=== PATIENT | female | born 1945 | race Caucasian/White ===

== ENCOUNTER 2016-10-19 11:38 | Emergency (ER) | payer MEDICARE ==
[2016-10-19] MEDS ORDERED: Lorazepam 2 MG/ML VIAL ONE ×2 (13:23→19:11)
--- NOTE | 2016-10-19 22:49 | CT ---
CT BRAIN WITHOUT CONTRAST: HISTORY: Syncope. FINDINGS/IMPRESSION: Comparison is made with the exam of 07/05/15. No evidence of acute infarct, hemorrhage, midline shift, or abnormal extraaxial fluid collections se en. Ventricular size is appropriate and the basilar cisterns are patent. The bony calvarium is int act. The visualized paranasal sinuses and mastoid air cells are well aerated. IMPRESSION: No acute intracranial process. POS: [facility]
--- NOTE | 2016-10-19 22:50 | RAD ---
THREE VIEWS OF THE RIGHT SHOULDER: COMPARISON: None. HISTORY: Right shoulder pain. FINDINGS: Three views of the right shoulder show no evidence of acute fracture or dislocation. No degenerativ e changes are seen. No soft tissue swelling is present. IMPRESSION: No significant right shoulder abnormality. POS: [facility]
--- NOTE | 2016-10-19 22:51 | RAD ---
TWO VIEWS OF THE RIGHT ELBOW: Comparison: None. History: Trauma with right elbow pain. FINDINGS: Two views of the right elbow shows no evidence of acute fracture or dislocation. Elbow effusion is seen. No other degenerative changes are seen. IMPRESSION: No evidence of acute osseous abnormality. POS: [facility]
--- NOTE | 2016-10-19 22:51 | RAD ---
SINGLE VIEW OF THE CHEST: COMPARISON: 04/25/16. HISTORY: Trauma with chest pain. FINDINGS: A single view of the chest shows an enlarged cardiomediastinal silhouette with atherosclerotic calci fications in the aorta. There is no evidence of consolidation, mass, or pleural effusion. Degenera tive changes are seen in the spine. IMPRESSION: 1. Cardiomegaly. 2. Atherosclerotic disease. POS: [facility]
--- NOTE | 2016-10-19 22:51 | RAD ---
TWO VIEWS OF THE RIGHT HUMERUS: COMPARISON: None. HISTORY: Right humerus pain after a trauma. FINDINGS: Two views of the right humerus show no evidence of acute fracture or dislocation. No soft tissue sw elling is seen. No degenerative changes are seen in the shoulder or elbow. IMPRESSION: Unremarkable exam. POS: [facility]
[2016-10-20 00:59] LABS: #Basophils 0.1 thou/uL (0.0-0.2); #Eosinphils 0.1 thou/uL (0.0-0.7); #Lymphocytes 2.1 thou/uL (1.20-3.40); #Monocytes 0.5 thou/uL (0.11-0.59); %Basophils 1.1 % (0.0-1.0); %Eosinophils 0.9 % (0.0-10.0); %Lymphocytes 27.2 % (21.0-51.0); %Neutrophils 64.9 % (42.0-75.0); Mean Corpuscular HGB CONC 35.3 g/dL (32.0-36.0); Mean Corpuscular Hemoglobin 32.4 pg (27.0-31.0); Mean Corpuscular Volume 91.9 fl (81.0-99.0); Mean Platelet Volume 9.7 fL (7.4-10.4); Platelet Count 221 thou/uL (130-400); RBC Distribution Width 11.7 % (11.5-14.5); White Blood Cell (WBC) Count 7.7 thou/uL (4.8-10.8)
[2016-10-20 01:00] LABS: ALT (SGPT) 16 U/L (0-55); AST (SGOT) 22 U/L (5-34); Albumin 4.1 g/dL (3.4-4.8); Alkaline Phosphatase 106 U/L (40-150); Anion Gap 17 mmol/L (10-20); BUN (Urea Nitrogen) 16 mg/dL (9.8-20.1); Bilirubin, Total 0.3 mg/dL (0.2-1.2); Calc. Creatinine Clearance 0 mL/min (70-130); Calcium 9.4 mg/dL (7.8-10.44); Carbon Dioxide 25 mmol/L (23-31); Chloride 104 mmol/L (98-107); Estimated GFR-MDRD 68; Glucose 104 mg/dL (83-110); Magnesium 2.3 mg/dL (1.6-2.6); Potassium 4.4 mmol/L (3.5-5.1); Protein, Total 7.1 g/dL (5.8-8.1); Sodium 142 mmol/L (136-145)
[2016-10-20 01:02] LABS: CKMB 0.9 ng/mL (0-6.6); Troponin I Less than 0.010 ng/mL (< 0.028)
== END 2016-10-19 14:46 | disposition short-term general hospital (02) ==
LOC: MADERS 11:38
DX: R55 Syncope and collapse (principal); R56.9 Unspecified convulsions; I25.10 Atherosclerotic heart disease of native coronary artery without angina pectoris; I49.9 Cardiac arrhythmia, unspecified; I48.91 Unspecified atrial fibrillation; J44.9 Chronic obstructive pulmonary disease, unspecified; M19.90 Unspecified osteoarthritis, unspecified site; E79.0 Hyperuricemia without signs of inflammatory arthritis and tophaceous disease; F41.9 Anxiety disorder, unspecified; Z79.82 Long term (current) use of aspirin; Z79.899 Other long term (current) drug therapy; Z86.73 Personal history of transient ischemic attack (TIA), and cerebral infarction without residual deficits
CPT/HCPCS: 36415; 36416; 70450; 71010; 80053; 82553; 83735; 83880; 84484; 85025; 93005; 96374; J2060

== ENCOUNTER 2017-04-09 19:38 | Emergency (ER) | payer MEDICARE ==
[2017-04-09] MEDS ORDERED: Ondansetron ODT 4 MG TAB ONE (21:39)
[2017-04-09] MEDS ORDERED: Ketorolac Tromethamine 60 MG/2 ML VIAL ONE (21:39)
== END 2017-04-09 22:11 | disposition home or self-care (01) ==
LOC: MADERS 19:38
DX: G43.909 Migraine, unspecified, not intractable, without status migrainosus (principal); I25.10 Atherosclerotic heart disease of native coronary artery without angina pectoris; I25.2 Old myocardial infarction; I48.91 Unspecified atrial fibrillation; J44.9 Chronic obstructive pulmonary disease, unspecified; F41.9 Anxiety disorder, unspecified; Z86.73 Personal history of transient ischemic attack (TIA), and cerebral infarction without residual deficits; Z79.82 Long term (current) use of aspirin; Z79.899 Other long term (current) drug therapy
CPT/HCPCS: 96372; J1885; Q0162

== ENCOUNTER 2017-04-24 12:46 | Outpatient (CLI) | payer MEDICARE ==
[2017-04-24 13:56] LABS: Clarity Hazy (Clear); Glucose, Urine (Dipstick) Negative (Negative); Leukocyte Small (Negative); Nitrite Negative (Negative); Protein, Urine (Dipstick) Negative (Neg-Trace); Urobilinogen 0.2 mg/dL (0.2-1.0)
[2017-04-24 13:57] LABS: Bacteria/HPF Rare-Few HPF (None Seen); Bilirubin Negative (Negative); Blood, Urine Negative (Negative); RBC/HPF 0-3 HPF (0-3); Squamous Epithelial 0-3 HPF (0-3); WBC/HPF 0-3 HPF (0-3)
== END 2017-04-24 12:47 | disposition home or self-care (01) ==
LOC: MADLAB 12:46
PROVIDERS: ATTEND Urology
DX: N39.41 Urge incontinence (principal)
CPT/HCPCS: 36415; 81001; 87077; 87086; 87186

== ENCOUNTER 2017-05-08 13:32 | Outpatient (CLI) | payer MEDICARE ==
[2017-05-08 14:25] LABS: Bilirubin Negative (Negative); Blood, Urine Negative (Negative); Glucose, Urine (Dipstick) Negative (Negative); Leukocyte Negative (Negative); Nitrite Negative (Negative); Protein, Urine (Dipstick) Negative (Neg-Trace); Urobilinogen 0.2 mg/dL (0.2-1.0)
[2017-05-08 14:26] LABS: Bacteria/HPF Rare-Few HPF (None Seen); Clarity Hazy (Clear); RBC/HPF 0-3 HPF (0-3); Squamous Epithelial 0-3 HPF (0-3); WBC/HPF 0-3 HPF (0-3)
== END 2017-05-08 13:33 | disposition home or self-care (01) ==
LOC: MADLAB 13:32
PROVIDERS: ATTEND Urology
DX: N39.41 Urge incontinence (principal)
CPT/HCPCS: 36415; 81001; 87086

== ENCOUNTER 2023-07-15 17:11 | Emergency (ER) | payer MEDICARE ==
[2023-07-15 18:31] LABS: Bilirubin Negative (Negative); Blood, Urine Negative (Negative); Glucose, Urine (Dipstick) 250 mg/dL (Negative); Ketone, Urine Negative (Negative); Leukocyte Trace (Negative); Nitrite Negative (Negative); Protein, Urine (Dipstick) Trace mg/dL (Neg-Trace); Specific Gravity, Urine 1.015 (1.005-1.030); Urobilinogen 0.2 mg/dL (Less than 2); pH, Urine 5.5 (5.0-9.0)
[2023-07-15 18:32] LABS: Clarity Hazy (Clear)
[2023-07-15 18:37] LABS: Bacteria/HPF Rare-Few HPF (None Seen); CAUTI Indications for Culture Dysuria,urgency,freq; Mucous/LPF Few LPF (<2+); RBC/HPF None Seen HPF (0-3); Squamous Epithelial 0-3 HPF (0-3)
[2023-07-15 18:38] LABS: Urine Culture Reflex No No
[2023-07-15] MEDS ORDERED: Amoxicillin/Potassium Clav 875 MG TAB ONE (18:57)
[2023-07-15] MEDS ORDERED: Acetaminophen 500 MG TAB ONE (18:57)
== END 2023-07-15 19:20 | disposition home or self-care (01) ==
LOC: MADERS 17:11
DX: J06.9 Acute upper respiratory infection, unspecified (principal); J44.1 Chronic obstructive pulmonary disease with (acute) exacerbation; N39.0 Urinary tract infection, site not specified; I25.10 Atherosclerotic heart disease of native coronary artery without angina pectoris; E66.9 Obesity, unspecified; E78.5 Hyperlipidemia, unspecified; Z79.899 Other long term (current) drug therapy
CPT/HCPCS: 71045; 81001

== ENCOUNTER 2024-02-03 15:33 | Emergency (ER) | payer MEDICARE, OTHER ==
[~2024-02-03 15:33] MED LIST: Iopamidol 370 76% 100 ML VIAL ONE
[2024-02-03 16:24] LABS: #Basophils 0.1 thou/uL (0.0-0.2); #Eosinphils 0.1 thou/uL (0.0-0.7); #Lymphocytes 1.7 thou/uL (1.20-3.40); #Monocytes 0.4 thou/uL (0.11-0.59); %Basophils 1.5 % (0.0-1.0); %Eosinophils 1.1 % (0.0-10.0); %Monocytes 6.5 % (0.0-10.0); %Neutrophils 63.9 % (42.0-75.0); Hematocrit 38.4 % (36.0-47.0); Mean Corpuscular HGB CONC 31.3 g/dL (32.0-36.0); Mean Corpuscular Hemoglobin 31.2 pg (27.0-31.0); Mean Corpuscular Volume 99.6 fl (78.0-98.0); Mean Platelet Volume 10.3 fL (7.4-10.4); Platelet Count 171 10x3/uL (130-400); RBC Distribution Width 11.9 % (11.5-14.5); Red Blood Cell (RBC) Count 3.86 mill/uL (4.20-5.40); White Blood Cell (WBC) Count 6.2 10x3/uL (4.8-10.8)
[2024-02-03 16:40] LABS: Anion Gap 13 mmol/L (10-20); BUN (Urea Nitrogen) 18 mg/dL (9.8-20.1); Calc. Creatinine Clearance 0 mL/min (70-130); Calcium 9.4 mg/dL (7.8-10.44); Carbon Dioxide 34 mmol/L (23-31); Chloride 98 mmol/L (98-107); Estimated GFR 66; Glucose 97 mg/dL (83-110); Potassium 4.2 mmol/L (3.5-5.1); Sodium 141 mmol/L (136-145)
[2024-02-03 16:44] LABS: Troponin I Less than 0.010 ng/mL (< 0.028)
[2024-02-03] MEDS ORDERED: Furosemide 40 MG (4 mL) VIAL ONE (18:25)
== END 2024-02-03 18:33 | disposition home or self-care (01) ==
LOC: MADERS 15:33
DX: R53.1 Weakness (principal); R06.02 Shortness of breath; J44.9 Chronic obstructive pulmonary disease, unspecified
CPT/HCPCS: 71045; 71275; 80048; 84484; 85025; 85379; 93005; 96374; J1940; Q9967

== ENCOUNTER 2024-03-03 08:51 | Outpatient (CLI) | payer MEDICARE, OTHER | END 2024-03-03 08:52 | disposition home or self-care (01) | LOC: MADCT 08:51 | PROVIDERS: ATTEND Psychiatry & Neurology Neurology | DX: R56.9 Unspecified convulsions (principal) | CPT/HCPCS: 70450 ==